=== PATIENT | male | born 1955 | race Caucasian/White ===

== ENCOUNTER 2019-06-27 17:08 | Emergency (ER) | payer BC, OTHER ==
[2019-06-27] MEDS ORDERED: Adacel (T-DAP) 0.5 ML SYRINGE ONE (17:25)
== END 2019-06-27 17:43 | disposition home or self-care (01) ==
LOC: MADERS 17:08
DX: L03.011 Cellulitis of right finger (principal); F17.220 Nicotine dependence, chewing tobacco, uncomplicated
CPT/HCPCS: 90471; 90715; 99283